=== PATIENT | male | born 1980 | race Asian ===

== ENCOUNTER 2024-02-01 13:22 | Emergency (ER) | payer MEDICAID ==
[~2024-02-01] VITALS: Ht 170.2 cm; Wt 61.0 kg
[2024-02-01 13:35] VITALS: O2SAT 99
[2024-02-01] MEDS ORDERED: P50 MT (15:34)
[2024-02-01] MEDS ORDERED: TC1U15 TP (15:34)
[2024-02-01] MEDS ORDERED: BACI28.32 TP (15:39)
[2024-02-01 15:57] VITALS: BP 118/82; PULSE 91; RESP 15; TEMP 98.7
== END 2024-02-01 16:14 | disposition home or self-care (01) ==
LOC: ER 14:06
DX: S90.822A Blister (nonthermal), left foot, initial encounter (principal); X58.XXXA Exposure to other specified factors, initial encounter; Y93.89 Activity, other specified; Y92.89 Other specified places as the place of occurrence of the external cause; Y99.8 Other external cause status
CPT/HCPCS: 99282